=== PATIENT | male | born 1965 | race Two or more races ===

== ENCOUNTER 2021-10-19 09:02 | Inpatient (IN) | payer MEDICARE, MEDICAID ==
[~2021-10-19] VITALS: Ht 165.1 cm; Wt 64.7 kg
[2021-10-19] MEDS ORDERED: cefTRIAXone 1GM/50ML D5W 50 ML IV ONE (09:45)
[2021-10-19 10:25] LABS: Basophils # (auto) 0 10 ^3/uL (0-0.2); Basophils % (auto) 0.3 % (0.0-2.0); Eosinophils # (auto) 0.2 10 ^3/uL (0-0.8); Hematocrit 35.6 % (41.0-53.0); Hemoglobin 11.8 g/dL (13.5-17.5); Lymphocytes # (auto) 2.1 10 ^3/uL (0.4-5.4); Lymphocytes % (auto) 25.7 % (10.0-50.0); Mean Corpuscular Hemoglobin 30.7 pg (28.0-32.0); Mean Corpuscular Hgb Conc. 33.3 g/dL (32.0-36.0); Mean Corpuscular Volume 92.2 fL (80.0-100.0); Monocytes # (auto) 0.9 10 ^3/uL (0-1.3); Monocytes % (auto) 11.4 % (0.0-12.0); Neutrophils # (auto) 4.9 10 ^3/uL (1.6-8.6); Neutrophils % (auto) 59.6 % (37.0-80.0); Red Blood Cells 3.85 10^6/uL (4.5-5.90); Red Cell Distribution Width 17.5 % (11.8-14.3); White Blood Cell 8.3 10^3/uL (4.4-10.8)
[2021-10-19] MEDS ORDERED: CLINDAMYCIN 600MG IV 50 ML IV ONE (10:45)
[2021-10-19] MEDS ORDERED: MORPHINE SULFATE INJ 2 MG/ml SYRG IV PRN (16:15)
[2021-10-19] MEDS ORDERED: NITROGLYCERIN 0.4 MG SL TAB SL PRN (16:15)
[2021-10-19 16:44] LABS: Albumin 3.3 g/dL (3.4-5.0); Calcium 9.8 mg/dL (8.5-10.1); Potassium 5.2 mmol/L (3.5-5.1)
[2021-10-19 16:52] LABS: Bilirubin, Total 0.7 mg/dL (0.2-1.0); Total Protein 7.7 g/dL (6.4-8.2)
[2021-10-19] MEDS ORDERED: LORazepam 0.5 MG TAB PO PRN (19:15)
[2021-10-19] MEDS ORDERED: DOCUSATE SOD 100 MG CAP PO PRN (19:15)
[2021-10-19] MEDS ORDERED: PANTOPRAZOLE 40 MG/10 ML VIAL INJ IV ONE ×2 (19:15→20:15)
[2021-10-19] MEDS ORDERED: hydrALAZINE HCL 20 MG/ML VL IV PRN (19:15)
[2021-10-19] MEDS ORDERED: B-COMPLEX W/ C & FOLIC ACID(NEPHROVITE TAB) PO ONE (19:15)
[2021-10-19 19:42] LABS: Phosphorus 7.7 mg/dL (2.5-4.90)
[2021-10-19 20:00] VITALS: BP 140/88
[2021-10-19 21:01] LABS: INR 1.03 (0.9-1.15)
[2021-10-19] MEDS: metroNIDAZOLE 500MG/100ML 100 ML IV SCH (21:57)
[2021-10-19 22:00] VITALS: BP 142/89
[2021-10-20] MEDS: HYDROcodone-ACET 5/325MG TAB PO PRN (02:51)
[2021-10-20 04:21] LABS: Urine Bacteria FEW /hpf (None Seen); Urine Blood Negative /uL (Negative); Urine Specific Gravity 1.012 (1.001-1.035); Urine WBC 2 /hpf (0 - 3)
[2021-10-20 04:33] LABS: Alcohol, Urine < 3.0 mg/dL (0-10); Amphetamine Screen, Urine NEGATIVE (NEGATIVE); Barbiturate Scree,Urine NEGATIVE (NEGATIVE); Benzodiazephine Screen, Urine NEGATIVE (NEGATIVE); Cannabinoid Screen, Urine NEGATIVE (NEGATIVE); Cocaine Screen, Urine NEGATIVE (NEGATIVE); Opiate Scree,Urine NEGATIVE (NEGATIVE); Phencyclidine Screen, Urine NEGATIVE (NEGATIVE)
[2021-10-20 04:42] LABS: Protein, Urine 243.4 mg/dL (0.0-11.9)
[2021-10-20 05:00] VITALS: BP 148/83
[2021-10-20] MEDS: MORPHINE SULFATE INJ 2 MG/ml SYRG IV PRN ×2 (05:00→21:48)
[2021-10-20] MEDS: metroNIDAZOLE 500MG/100ML 100 ML IV SCH ×3 (06:11→21:46)
[2021-10-20 06:18] LABS: Basophils # (auto) 0.1 10 ^3/uL (0-0.2); Basophils % (auto) 1.2 % (0.0-2.0); Eosinophils # (auto) 0.3 10 ^3/uL (0-0.8); Eosinophils % (auto) 5.1 % (0.0-7.0); Hematocrit 33.1 % (41.0-53.0); Hemoglobin 11.2 g/dL (13.5-17.5); Lymphocytes # (auto) 1.2 10 ^3/uL (0.4-5.4); Lymphocytes % (auto) 19.3 % (10.0-50.0); Mean Corpuscular Hemoglobin 31.2 pg (28.0-32.0); Mean Corpuscular Hgb Conc. 33.8 g/dL (32.0-36.0); Mean Corpuscular Volume 92.3 fL (80.0-100.0); Monocytes # (auto) 0.8 10 ^3/uL (0-1.3); Monocytes % (auto) 11.8 % (0.0-12.0); Neutrophils % (auto) 62.6 % (37.0-80.0); Red Blood Cells 3.59 10^6/uL (4.5-5.90); Red Cell Distribution Width 16.9 % (11.8-14.3); White Blood Cell 6.5 10^3/uL (4.4-10.8)
[2021-10-20 06:35] LABS: INR 1.02 (0.9-1.15); Partial Thromboplastin Time 28.5 sec (23.6-33.0)
[2021-10-20 06:36] LABS: Albumin 3.1 g/dL (3.4-5.0); Calcium 9.3 mg/dL (8.5-10.1); Magnesium 2.9 mg/dL (1.6-2.6)
[2021-10-20 06:45] LABS: Phosphorus 8.4 mg/dL (2.5-4.90)
[2021-10-20 06:47] LABS: Bilirubin, Total 0.7 mg/dL (0.2-1.0); CRP High Sensitivity 4.52 mg/dL (< 0.3); Total Protein 7.4 g/dL (6.4-8.2); Uric Acid 6.4 mg/dL (3.5-7.2)
[2021-10-20 07:56] LABS: Potassium 5.6 mmol/L (3.5-5.1)
[2021-10-20] MEDS ORDERED: CALCIUM ACETATE 667 MG CAP PO SCH (08:00)
[2021-10-20] MEDS: FERROUS SULFATE 325mg EC TAB PO SCH ×3 (08:13→17:53)
[2021-10-20] MEDS: ONDANSETRON HCL 4 MG/2 ML VIAL IV PRN ×2 (08:13→13:33)
[2021-10-20 08:57] VITALS: BP 155/99
[2021-10-20] MEDS: PANTOPRAZOLE 40 MG/10 ML VIAL INJ IV SCH (09:21)
[2021-10-20] MEDS: B-COMPLEX W/ C & FOLIC ACID(NEPHROVITE TAB) PO SCH (09:22)
[2021-10-20] MEDS: ENOXAPARIN SOD 30 MG/0.3 ML SYRINGE SC SCH (09:22)
[2021-10-20] MEDS ORDERED: CALCITRIOL 0.25 MCG CAP PO SCH (10:00)
[2021-10-20] MEDS: CEFEPIME 1GM/ 50ML 50 ML IV SCH (10:07)
[2021-10-20 12:56] VITALS: BP 160/104
[2021-10-20 17:24] VITALS: BP 155/91
[2021-10-20 22:18] VITALS: BP 131/77
[2021-10-21] MEDS: HYDROcodone-ACET 5/325MG TAB PO PRN (02:05)
[2021-10-21] MEDS: ONDANSETRON HCL 4 MG/2 ML VIAL IV PRN ×2 (02:06→06:46)
[2021-10-21 05:34] VITALS: BP 135/80
[2021-10-21] MEDS: metroNIDAZOLE 500MG/100ML 100 ML IV SCH ×3 (06:45→21:55)
[2021-10-21 08:00] VITALS: BP 140/80
[2021-10-21] MEDS ORDERED: ADENOSINE 58 MG in GIVE UN-DILUTED 0 ML IV ONE (08:00)
[2021-10-21] MEDS: FERROUS SULFATE 325mg EC TAB PO SCH ×3 (08:00→18:40)
[2021-10-21 09:00] VITALS: BP 141/81
[2021-10-21] MEDS ORDERED: ASPirin 81 mg TAB PO SCH (10:00)
[2021-10-21 12:00] VITALS: BP 140/80
[2021-10-21] MEDS: CEFEPIME 1GM/ 50ML 50 ML IV SCH (12:12)
[2021-10-21] MEDS: B-COMPLEX W/ C & FOLIC ACID(NEPHROVITE TAB) PO SCH (12:13)
[2021-10-21] MEDS: ENOXAPARIN SOD 30 MG/0.3 ML SYRINGE SC SCH (12:13)
[2021-10-21] MEDS: PANTOPRAZOLE 40 MG/10 ML VIAL INJ IV SCH (12:13)
[2021-10-21] MEDS ORDERED: BUPIVACAINE HCL 50 ML ONE (14:23)
[2021-10-21] MEDS ORDERED: LIDOCAINE 1%HCL (LOCAL ANESTH) 10 ML MDV ONE (14:23)
[2021-10-21] MEDS ORDERED: LIDOCAINE 1% (LOCAL ANESTH.) PF 5ml SDV ONE (14:23)
[2021-10-21] MEDS ORDERED: ceFAZolin 1GM/50ML 100 ML IV ONE (16:25)
[2021-10-21] MEDS ORDERED: fentaNYL CITRATE 100 MCG/2 ML VL ONE (16:32)
[2021-10-21] MEDS ORDERED: MIDAZOLAM HCL 2MG/2ML 2ml VIAL (1mg/ml) ONE (16:37)
[2021-10-21] MEDS ORDERED: DexAMETHasone SOD PHOS 10MG/1ML VIAL INJ ONE (17:09)
[2021-10-21] MEDS ORDERED: ONDANSETRON HCL 4 MG/2 ML VIAL ONE (17:09)
[2021-10-21] MEDS ORDERED: fentaNYL CITRATE 100 MCG/2 ML VL IV PRN (17:45)
[2021-10-21] MEDS ORDERED: ONDANSETRON HCL 4 MG/2 ML VIAL IV PRN (17:45)
[2021-10-21] MEDS ORDERED: METOCLOPRAMIDE HCL 5MG/ml INJ 2ml VIAL IV PRN (17:45)
[2021-10-21] MEDS: CARVEDILOL 12.5 MG TAB PO SCH (21:54)
[2021-10-21] MEDS: SACUBITRIL-VALSARTAN 24mg/26mg TAB PO SCH (21:54)
[2021-10-21 22:14] VITALS: BP 132/65
[2021-10-22] MEDS: ONDANSETRON HCL 4 MG/2 ML VIAL IV PRN ×2 (02:33→06:40)
[2021-10-22] MEDS: HYDROcodone-ACET 5/325MG TAB PO PRN (02:34)
[2021-10-22] MEDS: MORPHINE SULFATE INJ 2 MG/ml SYRG IV PRN ×2 (03:04→13:36)
[2021-10-22 05:02] VITALS: BP 106/68
[2021-10-22] MEDS: metroNIDAZOLE 500MG/100ML 100 ML IV SCH ×3 (05:59→23:54)
[2021-10-22] MEDS: ACETAMINOPHEN 325 MG TAB PO PRN (06:40)
[2021-10-22 09:00] VITALS: BP 116/57
[2021-10-22] MEDS ORDERED: SODIUM CHL 0.9% 1000 ML BAG XX ONE (09:15)
[2021-10-22] MEDS: PANTOPRAZOLE 40 MG/10 ML VIAL INJ IV SCH ×2 (10:00→13:38)
[2021-10-22] MEDS: CARVEDILOL 12.5 MG TAB PO SCH ×2 (10:00→22:00)
[2021-10-22] MEDS: FERROUS SULFATE 325mg EC TAB PO SCH ×3 (12:27→20:38)
[2021-10-22] MEDS: SACUBITRIL-VALSARTAN 24mg/26mg TAB PO SCH ×2 (12:28→23:48)
[2021-10-22] MEDS: DAPAGLIFLOZIN 5 MG TAB PO SCH ×2 (12:29→13:37)
[2021-10-22 13:00] VITALS: BP 128/63
[2021-10-22] MEDS: CEFEPIME 1GM/ 50ML 50 ML IV SCH (13:07)
[2021-10-22] MEDS: B-COMPLEX W/ C & FOLIC ACID(NEPHROVITE TAB) PO SCH ×2 (13:08→13:37)
[2021-10-22] MEDS: ENOXAPARIN SOD 30 MG/0.3 ML SYRINGE SC SCH (13:38)
[2021-10-22 17:00] VITALS: BP 138/68
[2021-10-22 21:41] VITALS: BP 110/63
[2021-10-23] MEDS: ACETAMINOPHEN 325 MG TAB PO PRN ×2 (00:32→13:18)
[2021-10-23 04:36] VITALS: BP 116/59
[2021-10-23] MEDS: metroNIDAZOLE 500MG/100ML 100 ML IV SCH ×3 (05:57→20:59)
[2021-10-23] MEDS: FERROUS SULFATE 325mg EC TAB PO SCH ×3 (08:52→17:32)
[2021-10-23] MEDS: MORPHINE SULFATE INJ 2 MG/ml SYRG IV PRN ×2 (08:55→16:46)
[2021-10-23 09:00] VITALS: BP 124/75
[2021-10-23 10:08] LABS: Basophils # (auto) 0.1 10 ^3/uL (0-0.2); Eosinophils # (auto) 0.1 10 ^3/uL (0-0.8); Hematocrit 39.9 % (41.0-53.0); Hemoglobin 13.7 g/dL (13.5-17.5); Lymphocytes # (auto) 1.1 10 ^3/uL (0.4-5.4); Lymphocytes % (auto) 14.5 % (10.0-50.0); Mean Corpuscular Hemoglobin 31.5 pg (28.0-32.0); Mean Corpuscular Hgb Conc. 34.3 g/dL (32.0-36.0); Mean Corpuscular Volume 91.7 fL (80.0-100.0); Monocytes # (auto) 0.7 10 ^3/uL (0-1.3); Neutrophils # (auto) 5.3 10 ^3/uL (1.6-8.6); Neutrophils % (auto) 73.5 % (37.0-80.0); Nucleated Red Blood Cells % 0.1 %; Red Blood Cells 4.34 10^6/uL (4.5-5.90); Red Cell Distribution Width 16.7 % (11.8-14.3); White Blood Cell 7.3 10^3/uL (4.4-10.8)
[2021-10-23 10:29] LABS: Calcium 9.2 mg/dL (8.5-10.1); Potassium 4.1 mmol/L (3.5-5.1)
[2021-10-23 10:30] LABS: BUN/Creatinine Ratio 5.5
[2021-10-23] MEDS: CARVEDILOL 12.5 MG TAB PO SCH ×2 (10:32→20:59)
[2021-10-23] MEDS: SACUBITRIL-VALSARTAN 24mg/26mg TAB PO SCH ×2 (10:32→21:00)
[2021-10-23] MEDS: CEFEPIME 1GM/ 50ML 50 ML IV SCH (10:36)
[2021-10-23] MEDS: ENOXAPARIN SOD 30 MG/0.3 ML SYRINGE SC SCH (10:38)
[2021-10-23 13:00] VITALS: BP 129/71
[2021-10-23 17:00] VITALS: BP 122/69
[2021-10-23 22:00] VITALS: BP 98/54
[2021-10-24] MEDS: ONDANSETRON HCL 4 MG/2 ML VIAL IV PRN ×2 (02:20→16:33)
[2021-10-24 05:00] VITALS: BP 109/67
[2021-10-24] MEDS: metroNIDAZOLE 500MG/100ML 100 ML IV SCH ×3 (05:27→21:09)
[2021-10-24 07:38] VITALS: BP 140/79
[2021-10-24] MEDS: PANTOPRAZOLE 40 MG/10 ML VIAL INJ IV SCH (08:22)
[2021-10-24] MEDS: SACUBITRIL-VALSARTAN 24mg/26mg TAB PO SCH ×2 (08:23→21:09)
[2021-10-24] MEDS: B-COMPLEX W/ C & FOLIC ACID(NEPHROVITE TAB) PO SCH (08:23)
[2021-10-24] MEDS: CARVEDILOL 12.5 MG TAB PO SCH ×2 (08:23→21:08)
[2021-10-24] MEDS: FERROUS SULFATE 325mg EC TAB PO SCH ×3 (08:23→17:38)
[2021-10-24] MEDS: DAPAGLIFLOZIN 5 MG TAB PO SCH (08:23)
[2021-10-24] MEDS: CEFEPIME 1GM/ 50ML 50 ML IV SCH (08:24)
[2021-10-24] MEDS: ENOXAPARIN SOD 30 MG/0.3 ML SYRINGE SC SCH (08:29)
[2021-10-24 09:00] VITALS: BP 140/79
[2021-10-24 13:00] VITALS: BP 126/63
[2021-10-24 14:45] LABS: Hepatitis A Ab IgM Negative; Hepatitis B Core IgM Negative
[2021-10-24 14:46] LABS: Hepatitis C Antibody Negative (Negative)
[2021-10-24 17:00] VITALS: BP 125/75
[2021-10-24 22:00] VITALS: BP 110/59
[2021-10-25] MEDS: ONDANSETRON HCL 4 MG/2 ML VIAL IV PRN (04:38)
[2021-10-25 05:30] VITALS: BP 121/65
[2021-10-25] MEDS: metroNIDAZOLE 500MG/100ML 100 ML IV SCH (05:41)
[2021-10-25] MEDS ORDERED: SODIUM CHL 0.9% 1000 ML BAG XX ONE (07:00)
[2021-10-25] MEDS: FERROUS SULFATE 325mg EC TAB PO SCH ×2 (08:00→12:00)
[2021-10-25 09:00] VITALS: BP 122/66
[2021-10-25] MEDS: CARVEDILOL 12.5 MG TAB PO SCH (09:23)
[2021-10-25] MEDS: ENOXAPARIN SOD 30 MG/0.3 ML SYRINGE SC SCH (09:24)
[2021-10-25] MEDS ORDERED: LEVO500T31 PO (10:00)
[2021-10-25] MEDS ORDERED: DAPA1TAB4 PO (10:00)
[2021-10-25] MEDS: PANTOPRAZOLE 40 MG/10 ML VIAL INJ IV SCH (10:00)
[2021-10-25] MEDS ORDERED: SACU1TAB PO (10:00)
[2021-10-25] MEDS: CEFEPIME 1GM/ 50ML 50 ML IV SCH (10:00)
[2021-10-25] MEDS: DAPAGLIFLOZIN 5 MG TAB PO SCH (10:00)
[2021-10-25] MEDS ORDERED: CAR3125T PO (10:00)
[2021-10-25] MEDS ORDERED: HYDR-4902 PO (10:00)
[2021-10-25] MEDS: SACUBITRIL-VALSARTAN 24mg/26mg TAB PO SCH (10:00)
[2021-10-25] MEDS: B-COMPLEX W/ C & FOLIC ACID(NEPHROVITE TAB) PO SCH (10:00)
[2021-10-25 12:00] VITALS: BP 99/59
== END 2021-10-25 13:28 | disposition home health service (06) | DRG 579 ==
LOC: ER 09:02 → TELE 16:15 → TELE-CENTR 18:55 → TELE 10-25 06:26 → TELE-CENTR 10-25 06:36
PROVIDERS: ADMIT Hospitalist; ATTEND Family Medicine
PROC: 5A1D70Z Performance of Urinary Filtration, Intermittent, Less than 6 Hours Per Day (ICD-10-PCS; 2021-10-20)
PROC: 0Y6P0Z1 Detachment at Right 1st Toe, High, Open Approach (ICD-10-PCS; principal; 2021-10-21 16:32)
PROC: 5A1D70Z Performance of Urinary Filtration, Intermittent, Less than 6 Hours Per Day (ICD-10-PCS; 2021-10-22)
PROC: 5A1D70Z Performance of Urinary Filtration, Intermittent, Less than 6 Hours Per Day (ICD-10-PCS; 2021-10-25)
DX: L03.115 Cellulitis of right lower limb (principal); N18.6 End stage renal disease; I21.A1 Myocardial infarction type 2; E43 Unspecified severe protein-calorie malnutrition; M86.671 Other chronic osteomyelitis, right ankle and foot; I12.0 Hypertensive chronic kidney disease with stage 5 chronic kidney disease or end stage renal disease; D63.1 Anemia in chronic kidney disease; E87.5 Hyperkalemia; E83.39 Other disorders of phosphorus metabolism; E78.00 Pure hypercholesterolemia, unspecified; E78.5 Hyperlipidemia, unspecified; Z20.822 Contact with and (suspected) exposure to COVID-19; I25.10 Atherosclerotic heart disease of native coronary artery without angina pectoris; Z99.2 Dependence on renal dialysis; Z83.3 Family history of diabetes mellitus; Z95.1 Presence of aortocoronary bypass graft; Z68.23 Body mass index [BMI] 23.0-23.9, adult; Z88.6 Allergy status to analgesic agent
CPT/HCPCS: 36415; 71045; 73620; 73700; 78452; 80048; 80053; 80061; 80074; 80307; 81001; 82550; 82728; 82962; 83036; 83615; 83690; 83735; 83880; 83970; 84100; 84156; 84443; 84484; 84550; 85025; 85379; 85610; 85652; 85730; 86141; 87040; 87070; 87075; 87076; 87077; 87086; 87186; 87205; 90935; 93005; 93017; 93306; 93926; 96365; 96366; 96367; 97163; C9113; G0378; J0153; J0690; J0696; J1100; J2001; J2250; J2405; J3490

== ENCOUNTER 2021-11-26 13:44 | Emergency (ER) | payer MEDICARE, MEDICAID ==
[~2021-11-26] VITALS: Ht 172.7 cm; Wt 72.6 kg
[~2021-11-26 13:44] MED LIST: CAR3125T PO; DAPA1TAB4 PO; HYDR-4902 PO; LEVO500T31 PO; SACU1TAB PO
[2021-11-26 14:08] VITALS: BP 104/63
== END 2021-11-26 22:02 | disposition left against medical advice (07) ==
LOC: EDBD 13:44 → ER 13:44
DX: T82.49XA Other complication of vascular dialysis catheter, initial encounter (principal); Z53.21 Procedure and treatment not carried out due to patient leaving prior to being seen by health care provider

== ENCOUNTER 2022-04-09 14:45 | Inpatient (IN) | payer MEDICARE, MEDICAID ==
[~2022-04-09] VITALS: Ht 170.2 cm; Wt 72.2 kg
[2022-04-09] MEDS ORDERED: ONDANSETRON HCL 4 MG/2 ML VIAL IV ONE (15:00)
[2022-04-09] MEDS ORDERED: SODIUM CHLORIDE 0.9% 1,000 ML IV ONE (15:00)
[2022-04-09] MEDS ORDERED: ASPirin 325 MG TAB PO ONE (15:00)
[2022-04-09 15:30] LABS: Basophils # (auto) 0.1 10 ^3/uL (0-0.2); Basophils % (auto) 0.7 % (0.0-2.0); Eosinophils # (auto) 0 10 ^3/uL (0-0.8); Eosinophils % (auto) 0.1 % (0.0-7.0); Hematocrit 36.7 % (41.0-53.0); Hemoglobin 12.2 g/dL (13.5-17.5); Lymphocytes # (auto) 1.2 10 ^3/uL (0.4-5.4); Mean Corpuscular Hemoglobin 30.2 pg (28.0-32.0); Mean Corpuscular Hgb Conc. 33.3 g/dL (32.0-36.0); Mean Corpuscular Volume 90.6 fL (80.0-100.0); Monocytes # (auto) 1.4 10 ^3/uL (0-1.3); Monocytes % (auto) 8.1 % (0.0-12.0); Neutrophils # (auto) 14.9 10 ^3/uL (1.6-8.6); Neutrophils % (auto) 84.1 % (37.0-80.0); Red Blood Cells 4.06 10^6/uL (4.5-5.90); Red Cell Distribution Width 14.9 % (11.8-14.3); White Blood Cell 17.7 10^3/uL (4.4-10.8)
[2022-04-09] MEDS ORDERED: NITROGLYCERIN 0.4 MG SL TAB SL ONE (15:30)
[2022-04-09 15:48] LABS: Albumin 3.4 g/dL (3.4-5.0); BUN/Creatinine Ratio 4.6; Calcium 9.4 mg/dL (8.5-10.1); Potassium 4.8 mmol/L (3.5-5.1)
[2022-04-09 15:51] LABS: Bilirubin, Total 1.2 mg/dL (0.2-1.0); Total Protein 8.1 g/dL (6.4-8.2)
[2022-04-10] MEDS ORDERED: MORPHINE SULFATE INJ 2 MG/ml SYRG IV ONE ×2 (08:00→09:15)
[2022-04-10] MEDS ORDERED: SODIUM CHLORIDE 0.9% 1,000 ML IV ONE (09:15)
[2022-04-10] MEDS ORDERED: NITROGLYCERIN 0.4 MG SL TAB SL ONE (09:15)
[2022-04-10] MEDS ORDERED: ONDANSETRON HCL 4 MG/2 ML VIAL IV ONE ×2 (09:15→09:45)
[2022-04-10] MEDS ORDERED: MORPHINE SULFATE INJ 2 MG/ml SYRG IV PRN (10:15)
[2022-04-10] MEDS ORDERED: ACETAMINOPHEN 325 MG TAB PO PRN (10:15)
[2022-04-10] MEDS ORDERED: NITROGLYCERIN 0.4 MG SL TAB SL PRN (10:15)
[2022-04-10] MEDS ORDERED: ONDANSETRON HCL 4 MG/2 ML VIAL IV PRN (10:15)
[2022-04-10] MEDS ORDERED: DEXTROSE (50%) 50ML SYRG IV PRN (10:15)
[2022-04-10] MEDS ORDERED: HYDROcodone-ACET 5/325MG TAB PO PRN (10:15)
[2022-04-10] MEDS: ACCU-CHEK COMFORT CURVE STRIP VI SCH ×3 (12:00→22:00)
[2022-04-10] MEDS: InsuLIN REG 1unit/0.01ml Soln (100units/ml) SC SCH ×3 (12:00→23:00)
[2022-04-10 12:24] LABS: Hematocrit 33.5 % (41.0-53.0); Hemoglobin 11.1 g/dL (13.5-17.5); Mean Corpuscular Hemoglobin 30.3 pg (28.0-32.0); Mean Corpuscular Hgb Conc. 33.3 g/dL (32.0-36.0); Red Blood Cells 3.68 10^6/uL (4.5-5.90); Red Cell Distribution Width 15.2 % (11.8-14.3); White Blood Cell 21.9 10^3/uL (4.4-10.8)
[2022-04-10] MEDS: PANTOPRAZOLE 40 MG TAB PO SCH (12:41)
[2022-04-10 12:45] LABS: Calcium 9.3 mg/dL (8.5-10.1)
[2022-04-10 12:49] LABS: Basophils % (manual) 0 (0.0-2.0); Blast Cells 0; Eosinophils % (manual) 0 (0-7); Metamyelocytes % 0; Myelocytes % 0; Promyelocytes % 0; Reactive Lymphocytes 0
[2022-04-10 12:51] LABS: BUN/Creatinine Ratio 6.6
[2022-04-10 14:12] LABS: Band Neutrophils % (manual) 8; Lymphocytes % (manual) 15 (10.0-50.0); Monocytes % (manual) 7 (0-12)
[2022-04-10] MEDS: HYDROcodone-ACET 5/325MG TAB PO PRN ×2 (14:20→23:03)
[2022-04-10] MEDS: PIPERACILLIN-TAZOB 3.375GM 100 ML IV SCH ×2 (14:20→23:00)
[2022-04-10] MEDS ORDERED: HEPARIN SODIUM (PORCINE) 5000 UNITS/ML 1ML VIAL IV SCH (22:00)
[2022-04-10 22:30] VITALS: BP 144/70
[2022-04-10] MEDS: OXYBUTYNIN CHL 5 MG TAB PO SCH (23:00)
[2022-04-10] MEDS: CARVEDILOL 3.125 MG TAB PO SCH (23:02)
[2022-04-10] MEDS: ONDANSETRON HCL 4 MG/2 ML VIAL IV PRN (23:03)
[2022-04-10] MEDS: SACUBITRIL-VALSARTAN 24mg/26mg TAB PO SCH (23:03)
[2022-04-10] MEDS: ATORVASTATIN 20 MG TAB PO SCH (23:04)
[2022-04-10] MEDS: HEPARIN SODIUM (PORCINE) 5000 UNITS/ML 1ML VIAL SC SCH (23:05)
[2022-04-11] MEDS: HYDROcodone-ACET 5/325MG TAB PO PRN ×3 (03:19→18:28)
[2022-04-11 05:00] VITALS: BP 111/56
[2022-04-11 06:13] LABS: Basophils # (auto) 0.1 10 ^3/uL (0-0.2); Basophils % (auto) 0.4 % (0.0-2.0); Eosinophils # (auto) 0.1 10 ^3/uL (0-0.8); Eosinophils % (auto) 0.5 % (0.0-7.0); Hematocrit 36.7 % (41.0-53.0); Hemoglobin 12.1 g/dL (13.5-17.5); Lymphocytes # (auto) 1.2 10 ^3/uL (0.4-5.4); Lymphocytes % (auto) 6.7 % (10.0-50.0); Mean Corpuscular Hemoglobin 30.2 pg (28.0-32.0); Mean Corpuscular Hgb Conc. 32.9 g/dL (32.0-36.0); Mean Corpuscular Volume 91.7 fL (80.0-100.0); Monocytes # (auto) 1.3 10 ^3/uL (0-1.3); Monocytes % (auto) 7.4 % (0.0-12.0); Neutrophils # (auto) 14.9 10 ^3/uL (1.6-8.6); White Blood Cell 17.5 10^3/uL (4.4-10.8)
[2022-04-11 06:34] LABS: Potassium 5.5 mmol/L (3.5-5.1)
[2022-04-11 06:42] LABS: Albumin 2.7 g/dL (3.4-5.0); BUN/Creatinine Ratio 7.4; Bilirubin, Total 1.2 mg/dL (0.2-1.0); Calcium 9.1 mg/dL (8.5-10.1); Total Protein 7.1 g/dL (6.4-8.2)
[2022-04-11] MEDS: InsuLIN REG 1unit/0.01ml Soln (100units/ml) SC SCH ×4 (07:00→21:56)
[2022-04-11] MEDS ORDERED: PIPERACILLIN-TAZOB 3.375GM 100 ML IV SCH (07:00)
[2022-04-11] MEDS ORDERED: SODIUM CHL 0.9% 1000 ML BAG XX ONE (07:00)
[2022-04-11] MEDS: ACCU-CHEK COMFORT CURVE STRIP VI SCH ×4 (07:09→21:56)
[2022-04-11] MEDS ORDERED: VANCOMYCIN PER PHARMACY 0 MG IV SCH (08:30)
[2022-04-11 09:00] VITALS: BP 108/34
[2022-04-11] MEDS: OXYBUTYNIN CHL 5 MG TAB PO SCH ×2 (09:51→21:31)
[2022-04-11] MEDS: PANTOPRAZOLE 40 MG TAB PO SCH (09:51)
[2022-04-11] MEDS: CARVEDILOL 3.125 MG TAB PO SCH ×2 (10:00→21:56)
[2022-04-11] MEDS ORDERED: SODIUM ZIRCONIUM CYCL 10 GM PAK PO ONE (10:00)
[2022-04-11] MEDS ORDERED: VANCOMYCIN 1GM/250ML 250 ML IV ONE (10:00)
[2022-04-11] MEDS: SACUBITRIL-VALSARTAN 24mg/26mg TAB PO SCH ×2 (10:00→21:56)
[2022-04-11] MEDS: HEPARIN SODIUM (PORCINE) 5000 UNITS/ML 1ML VIAL SC SCH ×2 (12:37→21:32)
[2022-04-11 13:00] VITALS: BP 80/27
[2022-04-11] MEDS ORDERED: SODIUM CHLORIDE 0.9% 250 ML IV ONE (14:45)
[2022-04-11 17:00] VITALS: BP 104/26
[2022-04-11] MEDS: PIPERACILLIN-TAZOB 2.25GM 50 ML IV SCH ×2 (18:19→23:52)
[2022-04-11] MEDS: ATORVASTATIN 20 MG TAB PO SCH (21:32)
[2022-04-11 22:00] VITALS: BP 91/41
[2022-04-11] MEDS: MUPIROCIN 2% OINT 15gm or 22gm TOP SCH (22:00)
[2022-04-12] MEDS: HYDROcodone-ACET 5/325MG TAB PO PRN ×5 (02:03→20:50)
[2022-04-12 05:00] VITALS: BP 111/51
[2022-04-12 06:30] LABS: Basophils # (auto) 0.1 10 ^3/uL (0-0.2); Basophils % (auto) 0.7 % (0.0-2.0); Eosinophils # (auto) 0.4 10 ^3/uL (0-0.8); Eosinophils % (auto) 3.1 % (0.0-7.0); Hematocrit 36.2 % (41.0-53.0); Lymphocytes # (auto) 1.1 10 ^3/uL (0.4-5.4); Lymphocytes % (auto) 8.8 % (10.0-50.0); Mean Corpuscular Hemoglobin 30.9 pg (28.0-32.0); Mean Corpuscular Volume 93.4 fL (80.0-100.0); Monocytes # (auto) 1.2 10 ^3/uL (0-1.3); Monocytes % (auto) 9.3 % (0.0-12.0); Neutrophils # (auto) 9.8 10 ^3/uL (1.6-8.6); Neutrophils % (auto) 78.1 % (37.0-80.0); Red Blood Cells 3.87 10^6/uL (4.5-5.90); Red Cell Distribution Width 15.5 % (11.8-14.3); White Blood Cell 12.5 10^3/uL (4.4-10.8)
[2022-04-12] MEDS: InsuLIN REG 1unit/0.01ml Soln (100units/ml) SC SCH ×4 (06:36→21:41)
[2022-04-12] MEDS: ACCU-CHEK COMFORT CURVE STRIP VI SCH ×4 (06:36→21:41)
[2022-04-12 06:38] LABS: BUN/Creatinine Ratio 6.6; Calcium 8.9 mg/dL (8.5-10.1)
[2022-04-12 06:41] LABS: Albumin 2.4 g/dL (3.4-5.0); Total Protein 6.8 g/dL (6.4-8.2)
[2022-04-12] MEDS: PIPERACILLIN-TAZOB 2.25GM 50 ML IV SCH ×3 (06:50→23:27)
[2022-04-12] MEDS ORDERED: SODIUM CHL 0.9% 1000 ML BAG XX ONE (07:00)
[2022-04-12 08:30] VITALS: BP 91/35
[2022-04-12] MEDS ORDERED: CIPROFLOXACIN 400MG/200ML 200 ML IV SCH (10:00)
[2022-04-12] MEDS: SACUBITRIL-VALSARTAN 24mg/26mg TAB PO SCH ×2 (10:00→21:41)
[2022-04-12] MEDS: CARVEDILOL 3.125 MG TAB PO SCH ×2 (10:00→21:41)
[2022-04-12] MEDS ORDERED: MIDODRINE HCL 10 MG TAB PO ONE (10:30)
[2022-04-12] MEDS ORDERED: ALBUMIN 25% 100 ML IV PRN (10:30)
[2022-04-12] MEDS: OXYBUTYNIN CHL 5 MG TAB PO SCH ×2 (11:53→21:47)
[2022-04-12] MEDS: PANTOPRAZOLE 40 MG TAB PO SCH (11:53)
[2022-04-12] MEDS: MUPIROCIN 2% OINT 15gm or 22gm TOP SCH ×2 (11:53→21:41)
[2022-04-12] MEDS: HEPARIN SODIUM (PORCINE) 5000 UNITS/ML 1ML VIAL SC SCH ×2 (11:56→21:49)
[2022-04-12 12:39] VITALS: BP 107/44
[2022-04-12] MEDS ORDERED: VANCOMYCIN 1GM/250ML 250 ML IV ONE ×2 (14:30→20:45)
[2022-04-12 16:39] VITALS: BP 119/41
[2022-04-12] MEDS: ATORVASTATIN 20 MG TAB PO SCH (21:47)
[2022-04-12 22:09] VITALS: BP 106/43
[2022-04-13] MEDS: HYDROcodone-ACET 5/325MG TAB PO PRN ×2 (03:41→16:34)
[2022-04-13 05:38] VITALS: BP 129/39
[2022-04-13] MEDS: PIPERACILLIN-TAZOB 2.25GM 50 ML IV SCH ×3 (06:54→23:07)
[2022-04-13] MEDS: ACCU-CHEK COMFORT CURVE STRIP VI SCH ×4 (06:54→22:04)
[2022-04-13] MEDS: InsuLIN REG 1unit/0.01ml Soln (100units/ml) SC SCH ×4 (06:54→22:00)
[2022-04-13 08:00] VITALS: BP 91/41
[2022-04-13 09:00] VITALS: BP 137/59
[2022-04-13] MEDS: SACUBITRIL-VALSARTAN 24mg/26mg TAB PO SCH ×2 (09:26→21:53)
[2022-04-13] MEDS: OXYBUTYNIN CHL 5 MG TAB PO SCH ×2 (09:26→21:53)
[2022-04-13] MEDS: PANTOPRAZOLE 40 MG TAB PO SCH (09:26)
[2022-04-13] MEDS: DOCUSATE SOD 100 MG CAP PO PRN (09:26)
[2022-04-13] MEDS: HEPARIN SODIUM (PORCINE) 5000 UNITS/ML 1ML VIAL SC SCH ×2 (09:27→21:54)
[2022-04-13] MEDS: CARVEDILOL 3.125 MG TAB PO SCH ×2 (09:27→22:51)
[2022-04-13] MEDS: MUPIROCIN 2% OINT 15gm or 22gm TOP SCH ×2 (09:28→22:03)
[2022-04-13 13:30] VITALS: BP 126/70
[2022-04-13 15:04] LABS: Urine Bacteria NONE SEEN /hpf (None Seen); Urine WBC 60 /hpf (0 - 3)
[2022-04-13 15:10] LABS: Urine Blood 3+ /uL (Negative)
[2022-04-13] MEDS: ONDANSETRON HCL 4 MG/2 ML VIAL IV PRN (16:30)
[2022-04-13 17:00] VITALS: BP 117/51
[2022-04-13] MEDS: ATORVASTATIN 20 MG TAB PO SCH (21:53)
[2022-04-13 22:00] VITALS: BP 136/55
[2022-04-14] MEDS: ONDANSETRON HCL 4 MG/2 ML VIAL IV PRN (04:50)
[2022-04-14 05:00] VITALS: BP 138/57
[2022-04-14] MEDS: ACCU-CHEK COMFORT CURVE STRIP VI SCH ×4 (06:52→21:39)
[2022-04-14] MEDS: InsuLIN REG 1unit/0.01ml Soln (100units/ml) SC SCH ×4 (06:52→21:39)
[2022-04-14] MEDS ORDERED: SODIUM CHL 0.9% 1000 ML BAG XX ONE (07:00)
[2022-04-14] MEDS: DOCUSATE SOD 100 MG CAP PO PRN (07:10)
[2022-04-14] MEDS: HYDROcodone-ACET 5/325MG TAB PO PRN (07:10)
[2022-04-14 07:40] VITALS: BP 132/73
[2022-04-14 09:00] VITALS: BP 132/73
[2022-04-14 09:18] LABS: Hematocrit 29.5 % (41.0-53.0); Hemoglobin 9.6 g/dL (13.5-17.5); Mean Corpuscular Hemoglobin 29.9 pg (28.0-32.0); Mean Corpuscular Hgb Conc. 32.7 g/dL (32.0-36.0); Mean Corpuscular Volume 91.4 fL (80.0-100.0); Red Blood Cells 3.23 10^6/uL (4.5-5.90); Red Cell Distribution Width 15.1 % (11.8-14.3)
[2022-04-14 09:36] LABS: Albumin 2.4 g/dL (3.4-5.0); BUN/Creatinine Ratio 5.7; Calcium 9.2 mg/dL (8.5-10.1); Potassium 4.5 mmol/L (3.5-5.1)
[2022-04-14 09:39] LABS: Bilirubin, Total 0.6 mg/dL (0.2-1.0); Total Protein 7.2 g/dL (6.4-8.2)
[2022-04-14 09:54] LABS: Basophils % (manual) 0 (0.0-2.0); Blast Cells 0; Metamyelocytes % 0; Myelocytes % 0; Promyelocytes % 0; Reactive Lymphocytes 0
[2022-04-14] MEDS: Dapagliflozin Propanediol (Farxiga) 10 MG PO SCH (10:00)
[2022-04-14] MEDS: HEPARIN SODIUM (PORCINE) 5000 UNITS/ML 1ML VIAL SC SCH ×2 (10:00→21:39)
[2022-04-14] MEDS: SACUBITRIL-VALSARTAN 24mg/26mg TAB PO SCH ×2 (10:00→21:31)
[2022-04-14] MEDS: CARVEDILOL 3.125 MG TAB PO SCH ×2 (10:00→22:00)
[2022-04-14] MEDS: OXYBUTYNIN CHL 5 MG TAB PO SCH ×2 (10:00→21:32)
[2022-04-14] MEDS: PANTOPRAZOLE 40 MG TAB PO SCH (10:00)
[2022-04-14] MEDS: MUPIROCIN 2% OINT 15gm or 22gm TOP SCH ×2 (10:00→21:39)
[2022-04-14] MEDS ORDERED: levoFLOXacin 500MG 100 ML IV SCH (10:00)
[2022-04-14 12:49] LABS: Band Neutrophils % (manual) 5; Eosinophils % (manual) 12 (0-7); Lymphocytes % (manual) 22 (10.0-50.0); Monocytes % (manual) 14 (0-12)
[2022-04-14 13:00] VITALS: BP 133/68
[2022-04-14 17:00] VITALS: BP 140/65
[2022-04-14] MEDS: ATORVASTATIN 20 MG TAB PO SCH (21:32)
[2022-04-14 22:00] VITALS: BP 127/72
[2022-04-15] MEDS: HYDROcodone-ACET 5/325MG TAB PO PRN ×2 (03:15→18:32)
[2022-04-15] MEDS: DOCUSATE SOD 100 MG CAP PO PRN (03:16)
[2022-04-15 05:00] VITALS: BP 145/82
[2022-04-15] MEDS: InsuLIN REG 1unit/0.01ml Soln (100units/ml) SC SCH ×4 (06:46→22:00)
[2022-04-15] MEDS: ACCU-CHEK COMFORT CURVE STRIP VI SCH ×4 (06:46→22:00)
[2022-04-15 09:00] VITALS: BP 141/65
[2022-04-15] MEDS: Dapagliflozin Propanediol (Farxiga) 10 MG PO SCH (10:00)
[2022-04-15] MEDS: MUPIROCIN 2% OINT 15gm or 22gm TOP SCH ×2 (10:00→22:00)
[2022-04-15] MEDS: HEPARIN SODIUM (PORCINE) 5000 UNITS/ML 1ML VIAL SC SCH ×2 (10:47→22:00)
[2022-04-15] MEDS: SACUBITRIL-VALSARTAN 24mg/26mg TAB PO SCH ×2 (10:48→21:57)
[2022-04-15] MEDS: OXYBUTYNIN CHL 5 MG TAB PO SCH ×2 (10:48→21:57)
[2022-04-15] MEDS: PANTOPRAZOLE 40 MG TAB PO SCH (10:48)
[2022-04-15] MEDS: CARVEDILOL 3.125 MG TAB PO SCH ×2 (10:49→21:56)
[2022-04-15 13:00] VITALS: BP 146/69
[2022-04-15 16:42] VITALS: BP 135/69
[2022-04-15] MEDS: ATORVASTATIN 20 MG TAB PO SCH (21:57)
[2022-04-15 22:00] VITALS: BP 134/74
[2022-04-16] MEDS: HYDROcodone-ACET 5/325MG TAB PO PRN ×2 (01:46→08:35)
[2022-04-16 05:00] VITALS: BP 156/77
[2022-04-16] MEDS: InsuLIN REG 1unit/0.01ml Soln (100units/ml) SC SCH ×4 (06:21→21:42)
[2022-04-16] MEDS: ACCU-CHEK COMFORT CURVE STRIP VI SCH ×4 (06:22→21:41)
[2022-04-16 09:00] VITALS: BP 137/70
[2022-04-16] MEDS: OXYBUTYNIN CHL 5 MG TAB PO SCH ×2 (09:29→21:40)
[2022-04-16] MEDS: SACUBITRIL-VALSARTAN 24mg/26mg TAB PO SCH ×2 (09:29→21:40)
[2022-04-16] MEDS: PANTOPRAZOLE 40 MG TAB PO SCH (09:29)
[2022-04-16] MEDS: CARVEDILOL 3.125 MG TAB PO SCH ×2 (09:30→21:40)
[2022-04-16] MEDS: HEPARIN SODIUM (PORCINE) 5000 UNITS/ML 1ML VIAL SC SCH ×2 (09:34→21:45)
[2022-04-16] MEDS: Dapagliflozin Propanediol (Farxiga) 10 MG PO SCH (09:35)
[2022-04-16] MEDS ORDERED: levoFLOXacin 250MG 50 ML IV SCH (10:00)
[2022-04-16] MEDS: MUPIROCIN 2% OINT 15gm or 22gm TOP SCH ×2 (10:15→21:41)
[2022-04-16 13:00] VITALS: BP 127/58
[2022-04-16 16:54] VITALS: BP 112/62
[2022-04-16] MEDS: ATORVASTATIN 20 MG TAB PO SCH (21:41)
[2022-04-16 22:00] VITALS: BP 139/69
[2022-04-17 05:00] VITALS: BP 142/76
[2022-04-17] MEDS: InsuLIN REG 1unit/0.01ml Soln (100units/ml) SC SCH ×2 (06:00→11:19)
[2022-04-17] MEDS: ACCU-CHEK COMFORT CURVE STRIP VI SCH ×2 (06:03→11:19)
[2022-04-17] MEDS ORDERED: SODIUM CHL 0.9% 1000 ML BAG XX ONE (07:00)
[2022-04-17 07:24] LABS: BUN/Creatinine Ratio 4.3; Calcium 9.5 mg/dL (8.5-10.1); Potassium 5.1 mmol/L (3.5-5.1)
[2022-04-17 09:00] VITALS: BP 153/71
[2022-04-17] MEDS: HEPARIN SODIUM (PORCINE) 5000 UNITS/ML 1ML VIAL SC SCH (09:49)
[2022-04-17] MEDS: OXYBUTYNIN CHL 5 MG TAB PO SCH (09:51)
[2022-04-17] MEDS: CARVEDILOL 3.125 MG TAB PO SCH (09:51)
[2022-04-17] MEDS: PANTOPRAZOLE 40 MG TAB PO SCH (09:51)
[2022-04-17] MEDS: SACUBITRIL-VALSARTAN 24mg/26mg TAB PO SCH (09:51)
[2022-04-17] MEDS: MUPIROCIN 2% OINT 15gm or 22gm TOP SCH (10:00)
[2022-04-17] MEDS: Dapagliflozin Propanediol (Farxiga) 10 MG PO SCH (10:00)
[2022-04-17] MEDS ORDERED: HYDR-4902 PO (12:01)
[2022-04-17] MEDS ORDERED: LEVO500T31 PO (12:01)
[2022-04-17 13:00] VITALS: BP 129/62
[2022-04-17 13:28] VITALS: BP_SYST 129; BP_SYST 164; BP_DIAS 62; BP_DIAS 85
[2022-04-17] MEDS ORDERED: EPOETIN ALFA-EPBX 4,000 UNIT/ML VIAL SC ONE (21:00)
== END 2022-04-17 15:24 | disposition home or self-care (01) | DRG 871 ==
LOC: ER 14:45 → TELE 04-10 10:13 → ER 04-10 10:26 → TELE-EAST 04-10 22:10
PROVIDERS: ADMIT Nurse Practitioner; ATTEND Nurse Practitioner
PROC: 5A1D70Z Performance of Urinary Filtration, Intermittent, Less than 6 Hours Per Day (ICD-10-PCS; principal; 2022-04-11)
PROC: 5A1D70Z Performance of Urinary Filtration, Intermittent, Less than 6 Hours Per Day (ICD-10-PCS; 2022-04-12)
PROC: 5A1D70Z Performance of Urinary Filtration, Intermittent, Less than 6 Hours Per Day (ICD-10-PCS; 2022-04-14)
PROC: 5A1D70Z Performance of Urinary Filtration, Intermittent, Less than 6 Hours Per Day (ICD-10-PCS; 2022-04-17)
DX: A41.9 Sepsis, unspecified organism (principal); N18.6 End stage renal disease; I13.2 Hypertensive heart and chronic kidney disease with heart failure and with stage 5 chronic kidney disease, or end stage renal disease; N39.0 Urinary tract infection, site not specified; I50.22 Chronic systolic (congestive) heart failure; Z20.822 Contact with and (suspected) exposure to COVID-19; Z99.2 Dependence on renal dialysis; E11.22 Type 2 diabetes mellitus with diabetic chronic kidney disease; R33.9 Retention of urine, unspecified; D63.1 Anemia in chronic kidney disease; E83.39 Other disorders of phosphorus metabolism; I25.10 Atherosclerotic heart disease of native coronary artery without angina pectoris; E11.65 Type 2 diabetes mellitus with hyperglycemia; E78.5 Hyperlipidemia, unspecified; K62.89 Other specified diseases of anus and rectum; N21.0 Calculus in bladder; Z95.1 Presence of aortocoronary bypass graft; Z95.0 Presence of cardiac pacemaker; Z87.891 Personal history of nicotine dependence; Z83.3 Family history of diabetes mellitus; Z79.899 Other long term (current) drug therapy
CPT/HCPCS: 36415; 70450; 71045; 74176; 76775; 80048; 80053; 80202; 81001; 82962; 83605; 84154; 84484; 85007; 85025; 85027; 87040; 87081; 87086; 87426; 90935; 93306; 96374; 96375; G0378; J1815; J1956; J2405; J2543; P9047

== ENCOUNTER 2022-04-21 16:15 | Emergency (ER) | payer MEDICARE, MEDICAID ==
[~2022-04-21] VITALS: Ht 170.2 cm; Wt 77.1 kg
[2022-04-21 18:21] LABS: Urine Bacteria FEW /hpf (None Seen); Urine Blood 3+ /uL (Negative); Urine Specific Gravity 1.009 (1.001-1.035); Urine WBC 331 /hpf (0 - 3)
[2022-04-21] MEDS ORDERED: CIPR-173 PO (20:04)
[2022-04-21] MEDS ORDERED: CIPROFLOXACIN HCL 500 MG TAB PO ONE (20:15)
[2022-04-21 20:56] VITALS: BP 137/77
== END 2022-04-21 20:58 | disposition home or self-care (01) ==
LOC: ER 16:15
DX: N39.0 Urinary tract infection, site not specified (principal); E11.22 Type 2 diabetes mellitus with diabetic chronic kidney disease; I12.0 Hypertensive chronic kidney disease with stage 5 chronic kidney disease or end stage renal disease; N18.6 End stage renal disease
CPT/HCPCS: 74176; 81001; 93005